=== PATIENT | male | born 1955 | race Caucasian/White ===

== ENCOUNTER → 2021-03-05 10:35 | Outpatient (BNVA) | payer BC, SELFPAY | PROVIDERS: PCP Internal Medicine; Visit Provider Urology | DX: N40.1 Benign prostatic hyperplasia with lower urinary tract symptoms (principal); R39.12 Poor urinary stream | CPT/HCPCS: 51798; 81002 ==

== ENCOUNTER → 2022-03-12 10:12 | Outpatient (BNVA) | payer MEDICARE, SELFPAY | PROVIDERS: PCP Internal Medicine; Visit Provider Urology | DX: N40.1 Benign prostatic hyperplasia with lower urinary tract symptoms (principal); R39.12 Poor urinary stream | CPT/HCPCS: 51798; 99212 ==

== ENCOUNTER → 2023-03-15 09:41 | Outpatient (BNVA) | payer MEDICARE, SELFPAY | PROVIDERS: PCP Internal Medicine; Visit Provider Urology | DX: N40.1 Benign prostatic hyperplasia with lower urinary tract symptoms (principal); N13.8 Other obstructive and reflux uropathy; R39.12 Poor urinary stream; E11.69 Type 2 diabetes mellitus with other specified complication; N52.1 Erectile dysfunction due to diseases classified elsewhere | CPT/HCPCS: 51798; 99212 ==

== ENCOUNTER 2024-08-22 08:12 | Outpatient (AMB) | payer MEDICARE, SELFPAY ==
--- NOTE | 2024-08-22 08:31 | MHC.OFFVIS ---
Intake Visit Reasons: 1Y PVR/PSA(set) Intake Note: Patient is present for 1y PVR/PSA Urology Medication:NONE Antibiotic Allergy:NONE Blood Thinner:NONE TODAY'S PVR: 0ML'S Bobcat Operator Required: No Accompanied by: Self / Same As Patient Allergies anesthesia Allergy (Unknown, Uncoded 08/22/24 08:32) Unknown Tylox Allergy (Unknown, Uncoded 08/22/24 08:32) Unknown HPI Comments Details: Mr Swift is a very pleasant male. He is a patient of Dr Villeda. He is seen for the following urologic conditions. 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 Lower Urinary Tract Symptoms: Current visit is for further evaluation of - lower urinary tract symptoms Prior treatments include medication 07/12 GreenLight laser. Prostate Symptom Score Moderate (9-19), Bother 3. Symptoms include incomplete emptying, weak stream, nocturia (>2), and are improving. Results from testing include cystoscopy Enlarged median lobe 10/08 renal/bladder us Yes date 05/02/2019 prostate size 77 Prior Prostate Score moderate. PSA 03/09 0.8, 03/11 0.7, 02/10 0.8, 03/14 0.7 Prostate volume 30-50gm. Associated conditions CAD No CVA No diabetes Yes elevated PSA No erectile dysfunction Yes Testing at next visit will include bladder scan 12 months. [facility] Medical History Benign prostatic hyperplasia with lower urinary tract symptoms BPH (benign prostatic hyperplasia) Crohn's disease Diabetes mellitus, type II Feeling of incomplete bladder emptying Hemochromatosis Hyperlipidemia Left inguinal pain Weak urinary stream Surgical History History of surgery Review of Systems Const Denies chills and Denies fever(s) Card Reports no additional complaints and Denies syncope Resp Denies cough GI Denies abdominal pain and Denies heartburn Reports as per HPI and Denies change in libido Neuro Denies syncope Psych Denies change in libido Endo Denies change in libido Physical Exam Const General: cooperative, healthy appearing, comfortable and no acute distress Orientation/consciousness: patient oriented x3 HEENT Face and sinus: Yes normal facial exam Mouth: moist mucous membranes Neck Neck: Yes normal visual inspection, Yes full ROM and Yes trachea midline Chest Chest palpation & inspection: normal inspection of the chest Resp Effort & Inspection: normal respiratory effort, able to speak in complete sentences and no respiratory distress GI Inspection: Yes normal to inspection Back/Spine/Pelvis Cervical Spine: normal cervical lordosis Thoracic/Lumbar Spine: thoracic and lumbar spine normal to inspection Skin General skin exam: no rashes or lesions noted Neuro General: patient oriented x3, gait normal, tone normal and moves all extremities Extrem General: Yes normal to inspection and Yes capillary refill normal Office Procedures Post Void Residual Post Residual Void Post Void Residual (PVR): 0 [id number] Void Residual by ultrasound Results AMB Urinalysis, Automated UA Leukoctes 0 Beka/uL Last Edit by SCOT Allen on 08/22/24 08:40 UA Nitrite Negative Last Edit by SCOT Allen on 08/22/24 08:40 UA Urobilinogen 0.2 mg/dL Last Edit by SCOT Allen on 08/22/24 08:40 UA Protein 0 mg/dL Last Edit by SCOT Allen on 08/22/24 08:40 UA pH 6.0 Last Edit by SCOT Allen on 08/22/24 08:40 UA Blood 0 Damon/uL Last Edit by SCOT Allen on 08/22/24 08:40 UA Specific [place] 1.020 Last Edit by SCOT Allen on 08/22/24 08:40 UA Ketone Negative Last Edit by SCOT Allen on 08/22/24 08:40 UA Bilirubin 0 mg/dL Last Edit by SCOT Allen on 08/22/24 08:40 UA Glucose 1000 mg/dL Last Edit by SCOT Allen on 08/22/24 08:40 Results Reviewed Results Reviewed: Laboratory Last Values Urine pH (Auto) 6.0 08/22/24 08:40 Specific [place] (Auto) 1.020 08/22/24 08:40 Urine Protein (Auto) 0 mg/dL 08/22/24 08:40 Glucose (UA)(Auto) 1000 mg/dL 08/22/24 08:40 Urine Ketones (Auto) Negative 08/22/24 08:40 Urine Blood (Auto) 0 Damon/uL 08/22/24 08:40 Urine Nitrite (Auto) Negative 08/22/24 08:40 Urine Bilirubin (Auto) 0 mg/dL 08/22/24 08:40 Urine Urobilinogen (Auto) 0.2 mg/dL 08/22/24 08:40 Leukocyte Esterase (Auto) 0 Beka/uL 08/22/24 08:40 Assessment & Plan Assessment & Plan (1) Benign prostatic hyperplasia with lower urinary tract symptoms: Code(s): N40.1 - Benign prostatic hyperplasia with lower urinary tract symptoms Category: Medical (2) Weak urinary stream: Code(s): R39.12 - Poor urinary stream Category: Medical Plan P.r.n. follow-up Orders: Orders AMB Urinalysis Automated Today Z13.9 - Encounter for screening, unspecified Patient Instructions: Imaging studies, laboratory and physical exam results were discussed and reviewed in detail. No major barriers to patient understanding were identified. An opportunity to ask questions regarding the treatment plan was provided. All questions were answered. The patient expressed understanding and agreement with the above treatment plan. The patient is aware they should contact our office by phone for worsening of their current condition or the appearance of new urologic symptoms. Compliance is encouraged with any medications and followup testing that is ordered. It is a privilege to participate in the urologic care of your patient. If you have any questions or concerns regarding treatment for the above conditions, or other urologic issues, please do not hesitate to contact me. The office telephone contact is [phone]. This note is constructed using voice recognition software. While every effort has been made to ensure accuracy potato peeler errors may have been included. Yours sincerely, Dr Cameron Herrera MD, [facility] - Urology Providers of Expert, Compassionate Care for the Genitourinary System Coding Level of Care Code Est Pt Level 4 (44631) Diagnoses Benign prostatic hyperplasia with lower urinary tract symptoms N40.1 Weak urinary stream R39.12 CPT Codes Post Residual Void - PVR CPT Code: 71188-[id number] Void Residual by ultrasound ([id number])
== END 2024-08-22 09:00 | disposition home or self-care (01) ==
LOC: HO.HUSH 08:12
PROVIDERS: Visit Provider Urology
DX: N40.1 Benign prostatic hyperplasia with lower urinary tract symptoms (principal); R39.12 Poor urinary stream; Z13.9 Encounter for screening, unspecified
CPT/HCPCS: 99214

== ENCOUNTER → 2024-08-22 08:12 | Outpatient (BNVA) | payer MEDICARE, SELFPAY | PROVIDERS: Visit Provider Urology | DX: N40.1 Benign prostatic hyperplasia with lower urinary tract symptoms (principal); R39.12 Poor urinary stream; N52.9 Male erectile dysfunction, unspecified; E11.9 Type 2 diabetes mellitus without complications | CPT/HCPCS: 51798; 81003; 99212 ==